=== PATIENT | female | born 1955 | race Caucasian/White ===

== ENCOUNTER 2020-10-15 14:54 | Emergency (ER) | payer BC ==
[2020-10-15 15:36] LABS: BASOPHILS % (AUTO) 0.6 %; EOSINOPHILS # (AUTO) 0.4 10^3/uL (0.0-0.7); EOSINOPHILS % (AUTO) 5.7 %; HGB - HEMOGLOBIN 13.6 g/dL (12.0-16.0); LYMPHOCYTES % (AUTO) 16.4 %; MEAN CORPUSCULAR HEMOGLOBIN 29.5 pg (27.0-31.0); MEAN CORPUSCULAR HGB CONC 32.2 g/dL (32.0-36.0); MEAN CORPUSCULAR VOLUME 91.5 fL (81.0-99.0); MEAN PLATELET VOLUME 9.8 fL (7.9-10.8); MONOCYTES # (AUTO) 0.4 10^3/uL (0.0-1.0); MONOCYTES % (AUTO) 6.5 %; NEUTROPHILS # (AUTO) 4.5 10^3/uL (1.5-6.6); NEUTROPHILS % (AUTO) 70.6 %; PLT - PLATELET COUNT 241 10^3/uL (130-450); RED BLOOD COUNT 4.61 10^6/uL (4.20-5.40); WHITE BLOOD COUNT 6.3 x10^3/uL (4.8-10.8)
--- NOTE | 2020-10-15 15:42 | XRAY Report ---
PROCEDURE: Chest 1 View X-Ray INDICATIONS: Chest Pain TECHNIQUE: One view of the chest was acquired. COMPARISON: None FINDINGS: Surgical changes and devices: Thoracic Osman rods are in place.. Lungs and pleura: No pleural effusions or pneumothorax. Lungs are clear. Mediastinum: Mediastinal contours appear normal. Heart size is normal. Bones and chest wall: No suspicious bony lesions. Moderate thoracic scoliosis. Overlying soft tissu es appear unremarkable. IMPRESSION: No acute cardiopulmonary disease. Reviewed by: Zoe Arias MD on 10/15/2020 3:41 PM PST Approved by: Zoe Arias MD on 10/15/2020 3:41 PM PST Station ID: [id number]
[2020-10-15 15:47] LABS: ALBUMIN 4.8 g/dL (3.2-5.5); ALBUMIN/GLOBULIN RATIO 1.8 (1.0-2.2); BILIRUBIN,TOTAL 0.4 mg/dL (0.2-1.0); CALCIUM 9.4 mg/dL (8.5-10.3); CREATININE 0.6 mg/dL (0.4-1.0); TOTAL PROTEIN 7.5 g/dL (6.7-8.2)
[2020-10-15 16:08] LABS: BILIRUBIN,URINE NEGATIVE (NEGATIVE); CLARITY,URINE CLEAR (CLEAR); GLUCOSE, URINE (UA) NEGATIVE (NEGATIVE); KETONES,URINE (UA) NEGATIVE (NEGATIVE); LEUKOCYTE ESTERASE, URINE NEGATIVE (NEGATIVE); NITRITE,URINE NEGATIVE (NEGATIVE); OCCULT BLOOD,URINE SMALL (NEGATIVE); PROTEIN,URINE NEGATIVE (NEGATIVE); UROBILINOGEN,URINE 0.2 (NORMAL) E.U./dL (NORMAL)
--- NOTE | 2020-10-15 16:10 | ED Physician Documentation ---
History of Present Illness - Stated complaint Stated Complaint: SOA - Chief complaint Chief Complaint: Resp - History obtained from History obtained from: Patient - Additonal information Additional information: 65-year-old female who has an underlying history of multiple sclerosis as well as scoliosis status post rodding of her spine presents to the emergency department with acute onset shortness of air and a feeling of warming in her body but no active fevers. She denies any cough or congestion. No chest pain no leg swelling abdominal pain or dysuria. She does report that she is followed by Dr. Martell the neurologist in [place]. Her MS is described as mild and she is only on gabapentin 100 mg 3 times a day. She does report that she is being managed for persistent spinal pain secondary t o the scoliosis and takes buprenorphine 2 mg sublingually 4 times a day. Patient denies that she has numbness, tingling or weakness in her arms or legs. She does not feel that the symptoms are consistent with previous MS flares. Pt denies any history of hypertension, coronary artery disease, blood clots or cancer. She is not a smoker. Nondrinker. Review of Systems Constitutional: denies: Fever, Chills, Myalgias Eyes: reports: Reviewed and negative Ears: reports: Reviewed and negative Nose: reports: Reviewed and negative Throat: reports: Reviewed and negative Cardiac: reports: Reviewed and negative Respiratory: reports: Dyspnea. 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] Allergy Intermediate Rash Verified 10/15/20 15:01 - Social History Does the pt smoke?: No Smoking Status: Never smoker Does the pt drink ETOH?: Yes Does the pt have substance abuse?: No - Immunizations Immunizations are current?: Yes PD ED PE EXPANDED - General General: Alert, No acute distress, Well developed/nourished - Neck Neck: Supple w/out meningeal sx, No tenderness. No: Adenopathy - Cardiac Cardiac: Regular Rate, Regular Rhythm, Radial strong equal, Pedal strong equal, Cap refill < 2 sec. No: Murmur Present - Respiratory Respiratory: Clear to ausultation stacy. No: Distress, Labored - Abdomen Abdomen: Normal Bowel sounds. No: Tender to palpation - Back Back: Other (Long midline thoracic lumbar spinal scar well-healed. No swelling or ecchymosis.) - Extremities Extremities: Normal. No: Deformity, Tenderness - Neuro Neuro: Alert and Oriented X 3, CNII-XII intact - GCS Eye Opening: Spontaneous Motor: Obeys Commands Verbal: Oriented Total: 15 Results - Vitals Vitals: Vital Signs - 24 hr 10/15/20 10/15/20 10/15/20 14:58 15:43 15:51 Temperature 36.3 C L Heart Rate 73 67 Respiratory 17 14 Rate Blood Pressure 168/69 H 158/71 H 170/73 H O2 Saturation 99 98 10/15/20 10/15/20 10/15/20 16:00 16:30 17:00 Temperature Heart Rate 61 64 70 Respiratory 19 17 17 Rate Blood Pressure 145/73 H 149/63 H 162/83 H O2 Saturation 98 98 98 Oxygen O2 Source Room air - EKG (time done) 1517 Rate: Rate (enter#) (65) Rhythm: NSR [place]: Normal Intervals: Normal NM Ischemia: Q waves (>30mS V2-V5) Compare to prior EKG: Old EKG unavailable Computer interpretation: Agree with computer - Labs Labs: Laboratory Tests 10/15/20 10/15/20 10/15/20 15:20 15:20 15:20 WBC 6.3 RBC 4.61 Hgb 13.6 Hct 42.2 MCV 91.5 MCH 29.5 MCHC 32.2 RDW 13.0 Plt Count 241 MPV 9.8 Neut # (Auto) 4.5 Lymph # (Auto) 1.0 L Beckham # (Auto) 0.4 Eos # (Auto) 0.4 Baso # (Auto) 0.0 Absolute Nucleated RBC 0.00 Nucleated RBC % 0.0 Sodium 137 Potassium 3.5 Chloride 99 L Carbon Dioxide 29 Anion Gap 9.0 BUN 16 Creatinine 0.6 Estimated GFR (MDRD) 101 Glucose 113 H Calcium 9.4 Total Bilirubin 0.4 AST 25 ALT 20 Alkaline Phosphatase 66 Troponin I High Sens 2.4 B-Natriuretic Peptide Total Protein 7.5 Albumin 4.8 Globulin 2.7 Albumin/Globulin Ratio 1.8 Lipase 24 Urine Color Urine Clarity Urine pH Ur Specific [place] Urine Protein Urine Glucose (UA) Urine Ketones Urine Occult Blood Urine Nitrite Urine Bilirubin Urine Urobilinogen Ur Leukocyte Esterase Urine RBC Urine WBC Ur Squamous Epith Cells Urine Bacteria 10/15/20 10/15/20 15:20 15:50 WBC RBC Hgb Hct MCV MCH MCHC RDW Plt Count MPV Neut # (Auto) Lymph # (Auto) Beckham # (Auto) Eos # (Auto) Baso # (Auto) Absolute Nucleated RBC Nucleated RBC % Sodium Potassium Chloride Carbon Dioxide Anion Gap BUN Creatinine Estimated GFR (MDRD) Glucose Calcium Total Bilirubin AST ALT Alkaline Phosphatase Troponin I High Sens B-Natriuretic Peptide 53 Total Protein Albumin Globulin Albumin/Globulin Ratio Lipase Urine Color YELLOW Urine Clarity CLEAR Urine pH 6.0 Ur Specific [place] 1.010 Urine Protein NEGATIVE Urine Glucose (UA) NEGATIVE Urine Ketones NEGATIVE Urine Occult Blood SMALL H Urine Nitrite NEGATIVE Urine Bilirubin NEGATIVE Urine Urobilinogen 0.2 (NORMAL) Ur Leukocyte Esterase NEGATIVE Urine RBC 6-10 H Urine WBC 0-3 Ur Squamous Epith Cells RARE Squamous Urine Bacteria None Seen - Rads (name of study) CXR Radiology: Final report received (No acute cardiopulmonary process) PD MEDICAL DECISION MAKING - ED course Complexity details: reviewed results, re-evaluated patient, considered differential, d/w patient ED course: 65-year-old female presents the emergency department with chief complaint of acute shortness of air. She had no hypoxia. Chest x-ray was unremarkable for focal pneumonia. EKG was nonischemic. High-sensitivity troponin as well as BNP unremarkable. No anemia or significant electrolyte abnormality. By Wells criteria the suspicion for acute PE would be extremely low. However without an alternative diagnosis for acute shortness of breath I had ordered a CT pulmonary angio to rule out a PE. However the patient was quite uncomfortable with the idea of a CT scan with contrast though she does not have a history of contrast allergy. At this time without any intervention here in the emergency department her shortness of air has resolved. She is requesting to be discharged home. Though not necessarily AGAINST MEDICAL ADVICE she was notified that if at any point she felt her symptoms were worsening to please return immediately to the emergency department for repeat evaluation. Patient feels that her shortness of air is related to her worsening back pain and scoliosis. She did take her boot the nephron which she feels may have improved her symptoms Departure - Departure Disposition: 01 Home, Self Care Clinical Impression: Shortness of breath Condition: Stable Record reviewed to determine appropriate education?: Yes Comments: Mariya matias are seen today for shortness of air. Here in the emergency department all your labs including your heart lab was normal. Your chest x-ray did not show any pneumonia. Your vital signs were also relatively stable. Your oxygen levels were normal. We did discuss doing the CT angio of your chest to rule out a blood clot in your lungs. You have declined to do this procedure. You were feeling better despite no interventions here in the emergency department. If at any point you feel that your symptoms are worsening please return immediately to the emergency department
[2020-10-15 16:18] LABS: BACTERIA,URINE None Seen /HPF (None Seen); SQUAMOUS EPITHELIAL CELL,UR RARE Squamous (<= Few)
[2020-10-15] MEDS ORDERED: IOVERSOL 320 100 ML VIAL IVP ONE (17:02)
[2020-10-15 17:15] VITALS: BP 162/83
== END 2020-10-15 17:36 | disposition home or self-care (01) ==
LOC: ED 14:54
DX: R06.02 Shortness of breath (principal); G35 Multiple sclerosis; M41.9 Scoliosis, unspecified; Z20.828 Contact with and (suspected) exposure to other viral communicable diseases
CPT/HCPCS: 36415; 80053; 81001; 83690; 83880; 84484; 85025; 93005; 99284

== ENCOUNTER 2021-05-01 17:52 | Emergency (ER) | payer BC ==
[2021-05-01 18:20] LABS: BASOPHILS % (AUTO) 0.7 %; EOSINOPHILS % (AUTO) 0.2 %; HCT - HEMATOCRIT 41.4 % (37.0-47.0); HGB - HEMOGLOBIN 13.7 g/dL (12.0-16.0); LYMPHOCYTES # (AUTO) 0.9 10^3/uL (1.5-3.5); LYMPHOCYTES % (AUTO) 14.2 %; MEAN CORPUSCULAR HEMOGLOBIN 29.8 pg (27.0-31.0); MEAN CORPUSCULAR HGB CONC 33.1 g/dL (32.0-36.0); MEAN PLATELET VOLUME 9.3 fL (7.9-10.8); MONOCYTES # (AUTO) 0.7 10^3/uL (0.0-1.0); MONOCYTES % (AUTO) 10.9 %; NEUTROPHILS # (AUTO) 4.5 10^3/uL (1.5-6.6); NEUTROPHILS % (AUTO) 73.7 %; PLT - PLATELET COUNT 246 10^3/uL (130-450); RED CELL DISTRIBUTION WIDTH 12.9 % (12.0-15.0); WHITE BLOOD COUNT 6.1 x10^3/uL (4.8-10.8)
[2021-05-01 18:32] LABS: ALBUMIN 4.5 g/dL (3.2-5.5); ALBUMIN/GLOBULIN RATIO 1.6 (1.0-2.2); BILIRUBIN,TOTAL 0.6 mg/dL (0.2-1.0); CALCIUM 9.7 mg/dL (8.5-10.3); CREATININE 0.5 mg/dL (0.4-1.0); POTASSIUM 3.6 mmol/L (3.5-5.0); TOTAL PROTEIN 7.4 g/dL (6.7-8.2)
--- NOTE | 2021-05-01 18:52 | ED Physician Documentation ---
PD HPI ABD PAIN - Stated complaint Stated Complaint: ABD PAIN - Chief complaint Chief Complaint: Abd Pain - History obtained from History obtained from: Patient - Additional information Additional information: 66-year-old woman with chronic pain due to multiple sclerosis and scoliosis presents with a week and a half of constant upper and central abdominal pain that is worse with eating. It is a burning sensation. She was seen at [facility] a week and a half ago for same and had blood work was done which was normal. Urinalysis showed hematuria so she had a noncontrast CT which was negative. She has had intermittent relief with Pepto-Bismol. Her bowel movements are irregular but that is her baseline due to the pain medication. 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, Hysterectomy - Present Medications Home Medications: Ambulatory Orders Medication Instructions Recorded Confirmed Levothyroxine Sodium [Synthroid] 200 mcg PO DAILY 08/17/13 05/01/21 Oxycodone HCl/Acetaminophen 1 each PO DAILY 08/17/13 05/01/21 [Percocet 10-325 mg Tablet] Omeprazole [PriLOSEC] 1 cap PO DAILY 05/01/21 05/01/21 Omeprazole [PriLOSEC] 20 mg PO BID #60 05/01/21 Oxycodone Myristate [Xtampza ER] 1 cap PO BID 05/01/21 05/01/21 Sucralfate [Carafate] 1 gm PO ACHS #60 tablet 05/01/21 - Allergies Allergies/Adverse Reactions: Allergies Allergy/AdvReac Type Severity Reaction Status Date / Time meloxicam [From Mobic] Allergy Intermediate Rash Verified 05/01/21 18:03 - Social History Does the pt smoke?: No Smoking Status: Never smoker Does the pt drink ETOH?: Yes Does the pt have substance abuse?: No - Immunizations Immunizations are current?: Yes PD ED PE NORMAL - Vitals Vital signs reviewed: Yes - General General: Alert and oriented X 3, No acute distress - HEENT HEENT: PERRL, EOMI - Neck Neck: Supple, no meningeal sign, No bony TTP - Cardiac Cardiac: RRR, No murmur - Respiratory Respiratory: No respiratory distress, Clear bilaterally - Abdomen Abdomen: Soft, Other (The hyperactive bowel tones, minimal diffuse tenderness wi thout guarding or rebound, no specific tenderness anywhere including in the right upper quadrant.) - Back Back: No CVA TTP, No spinal TTP - Extremities Extremities: No edema, No calf tenderness / cord - Neuro Neuro: Alert and oriented X 3, Normal speech Results - Vitals Vitals: Vital Signs - 24 hr 05/01/21 05/01/21 05/01/21 17:59 18:41 19:02 Temperature 36.6 C Heart Rate 81 70 75 Respiratory 18 19 19 Rate Blood Pressure 148/75 H 146/84 H 127/78 O2 Saturation 96 97 99 05/01/21 20:47 Temperature 36.8 C Heart Rate 77 Respiratory 16 Rate Blood Pressure 153/74 H O2 Saturation 98 Oxygen O2 Source Room air - Labs Labs: Laboratory Tests 05/01/21 05/01/21 05/01/21 18:10 18:15 18:15 WBC 6.1 RBC 4.60 Hgb 13.7 Hct 41.4 MCV 90.0 MCH 29.8 MCHC 33.1 RDW 12.9 Plt Count 246 MPV 9.3 Neut # (Auto) 4.5 Lymph # (Auto) 0.9 L [place] # (Auto) 0.7 Eos # (Auto) 0.0 Baso # (Auto) 0.0 Absolute Nucleated RBC 0.00 Nucleated RBC % 0.0 Sodium 140 Potassium 3.6 Chloride 100 L Carbon Dioxide 29 Anion Gap 11.0 BUN 15 Creatinine 0.5 Estimated GFR (MDRD) 124 Glucose 108 H Calcium 9.7 Total Bilirubin 0.6 AST 20 ALT 18 Alkaline Phosphatase 62 Total Protein 7.4 Albumin 4.5 Globulin 2.9 Albumin/Globulin Ratio 1.6 Lipase 20 L Urine Color YELLOW Urine Clarity CLEAR Urine pH 6.5 Ur Specific [place] <=1.005 Urine Protein NEGATIVE Urine Glucose (UA) NEGATIVE Urine Ketones NEGATIVE Urine Occult Blood SMALL H Urine Nitrite NEGATIVE Urine Bilirubin NEGATIVE Urine Urobilinogen 0.2 (NORMAL) Ur Leukocyte Esterase NEGATIVE Urine RBC 0-5 Urine WBC 0-3 Ur Squamous Epith Cells RARE Squamous Urine Bacteria Rare Ur Microscopic Review INDICATED Urine Culture Comments NOT INDICATED PD MEDICAL DECISION MAKING - ED course ED course: 66-year-old woman with upper abdominal pain, worse with eating, most consistent with gastritis/ulcer. Examination is quite benign. Labs are reassuring. Had recent negative CT without contrast. Had minimal relief with GI cocktail and a CT with contrast was ordered. CT neg, o/w seems most c/w gastritis/gerd/pud. Departure - Departure Disposition: 01 Home, Self Care Clinical Impression: Gastritis Qualifiers: Gastritis type: unspecified gastritis Chronicity: acute Gastritis bleeding: without bleeding Qualified Code(s): K29.00 - Acute gastritis without bleeding Abdominal pain Qualifiers: Abdominal location: epigastric Qualified Code(s): R10.13 - Epigastric pain Condition: Good Record reviewed to determine appropriate education?: Yes Instructions: ED Gastritis Prescriptions: Sucralfate [Carafate] 1 gm PO ACHS #60 tablet Omeprazole [PriLOSEC] 20 mg PO BID #60 Comments: As discussed, your CAT scan is normal. I suspect this is a manifestation of an ulcer or gastritis. Double your omeprazole to twice a day. Add the Carafate,, but with the discussed warning that you cannot take it within an hour of your other medications. Return for new or worsening symptoms. Discuss referral for upper endoscopy with your physician. Discharge Date/Time: 05/01/21 20:55
[2021-05-01] MEDS ORDERED: MAG HYDROX/AL HYDROX/SIMETH 30 ML UDC PO STA (18:53)
[2021-05-01] MEDS ORDERED: LIDOCAINE VISCOUS 2% 15 ML UDC MM STA (18:53)
[2021-05-01 19:00] LABS: BILIRUBIN,URINE NEGATIVE (NEGATIVE); CLARITY,URINE CLEAR (CLEAR); GLUCOSE, URINE (UA) NEGATIVE (NEGATIVE); KETONES,URINE (UA) NEGATIVE (NEGATIVE); LEUKOCYTE ESTERASE, URINE NEGATIVE (NEGATIVE); NITRITE,URINE NEGATIVE (NEGATIVE); OCCULT BLOOD,URINE SMALL (NEGATIVE); PH,URINE 6.5 PH (5.0-7.5); PROTEIN,URINE NEGATIVE (NEGATIVE); UROBILINOGEN,URINE 0.2 (NORMAL) E.U./dL (NORMAL)
[2021-05-01 19:11] LABS: BACTERIA,URINE Rare /HPF (None Seen); RBC,URINE 0-5 /HPF (0-5); SQUAMOUS EPITHELIAL CELL,UR RARE Squamous (<= Few); WBC,URINE 0-3 /HPF (0-5)
[2021-05-01] MEDS ORDERED: IOVERSOL 320 100 ML VIAL IVP ONE ×2 (19:39→20:06)
--- NOTE | 2021-05-01 20:18 | CT Report ---
PROCEDURE: Abdomen/Pelvis W INDICATIONS: IV only, upper abd pain CONTRAST: IV CONTRAST: Optiray 320 ml: 100 PO CONTRAST: *NO PO CONTRAST TECHNIQUE: After the administration of IV contrast, 5 mm thick sections acquired from the diaphragms to the symp hysis. 5 mm thick coronal and sagittal reformats were acquired. For radiation dose reduction, the f ollowing was used: automated exposure control, adjustment of mA and/or kV according to patient size. COMPARISON: None. FINDINGS: Image quality: Excellent. ABDOMEN: Lung bases: Lung bases are clear. Heart size is normal. Solid organs: Liver and spleen are normal in size and enhancement. Gallbladder is mildly distended and otherwise within normal limits Biliary system is non dilated. Pancreas enhances normally. No a drenal nodules. Kidneys demonstrate normal size and enhancement, without hydronephrosis. Peritoneum and bowel: Bowel loops demonstrate normal wall thickness and caliber. No free fluid or a ir. Nodes and vessels: No retroperitoneal or mesenteric adenopathy by size criteria. Aorta and inferior vena cava are normal in size. Miscellaneous: No ventral hernias. PELVIS: Genitourinary: Bladder wall thickness is normal. Miscellaneous: No inguinal hernias or adenopathy. Bones: No suspicious bony lesions. Severe leftward curvature of the thoracolumbar spine. Thoracolumb ar spinal hardware is present. No vertebral body compression fractures. IMPRESSION: 1. No acute process. 2. Appendix not seen. No evidence of appendicitis. Reviewed by: Gil Allen MD on 05/01/2021 8:17 PM PDT Approved by: Gil Allen MD on 05/01/2021 8:17 PM PDT Station ID: [id number]
[2021-05-01] MEDS ORDERED: PANTOPRAZOLE 40 MG VIAL IVP STA (20:34)
[2021-05-01 20:48] VITALS: BP 153/74
== END 2021-05-01 20:55 | disposition home or self-care (01) ==
LOC: ED 17:52
DX: K29.00 Acute gastritis without bleeding (principal); G35 Multiple sclerosis; G89.29 Other chronic pain; Z79.891 Long term (current) use of opiate analgesic; M41.9 Scoliosis, unspecified
CPT/HCPCS: 36415; 74177; 80053; 81001; 83690; 85025; 96374; 99284; A9270; Q9967; 81003; 87086

== ENCOUNTER 2021-09-26 09:14 | Outpatient (CLI) | payer BC | END 2021-09-26 09:15 | disposition critical access hospital (66) | LOC: EMS 09:14 | DX: M25.511 Pain in right shoulder (principal) | CPT/HCPCS: A0425; A0429 ==

== ENCOUNTER 2021-09-26 09:28 | Emergency (ER) | payer BC ==
[2021-09-26] MEDS ORDERED: PROPOFOL 200 MG/20 ML VIAL IVP STA (10:18)
[2021-09-26] MEDS ORDERED: HYDROmorphone 1 MG/ML CARPUJECT IVP STA (10:21)
[2021-09-26] MEDS ORDERED: SODIUM CHLORIDE 0.9% 1,000 ML IV STA (10:22)
[2021-09-26] MEDS ORDERED: ONDANSETRON 4 MG/2 ML VIAL IVP STA (10:22)
--- NOTE | 2021-09-26 10:23 | ED Physician Documentation ---
PD HPI UPPER EXT INJURY - Stated complaint Stated Complaint: SHOULDER PX - Chief complaint Chief Complaint: Trauma Ext - History obtained from History obtained from: Patient - Additonal information Additional information: Patient comes emergency department chief complaint of pain in right shoulder. She states she was trying to put her robe on this morning and when she reached her arm back to put in the arm hole, she suddenly felt her shoulder "popped out". Patient states this is happened many times before and in fact, happens about once a month. Is been happening for years and patient states that it usually just pops back and on its own. She has never seen an orthopedist for this. States sometimes that she gets some numbness in her hand afterward. Patient states that this time, it did not pop back in on its own. She states it is hurting a lot. No other complaints at this time. Review of Systems Ten Systems: 10 systems reviewed and negative Constitutional: reports: Reviewed and negative Eyes: reports: Reviewed and negative Ears: reports: Reviewed and negative Nose: reports: Reviewed and negative Throat: reports: Reviewed and negative Cardiac: reports: Reviewed and negative Respiratory: reports: Reviewed and negative GI: reports: Reviewed and negative : reports: Reviewed and negative Skin: reports: Reviewed and negative Musculoskeletal: reports: Extremity pain, Joint pain Neurologic: reports: Reviewed and negative Psychiatric: reports: Reviewed and negative Endocrine: reports: Reviewed and negative Immunocompromised: reports: Reviewed and negative PD PAST MEDICAL HISTORY - Past Medical History Past Medical History: Yes Cardiovascular: None Respiratory: None Neuro: None Endocrine/Autoimmune: HyPOthyroidism GI: GERD NURSE TECH: None : None HEENT: None Psych: None Musculoskeletal: Scoliosis Derm: None - Past Surgical History Past Surgical History: Yes Ortho: Knee replacement, Arthroscopic surgery, 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, Hysterectomy - Present Medications Home Medications: Ambulatory Orders Medication Instructions Recorded Confirmed Levothyroxine Sodium [Synthroid] 200 mcg PO DAILY 08/17/13 09/26/21 Oxycodone HCl/Acetaminophen 1 each ORAL Q4HR PRN 08/17/13 05/01/21 [Percocet 10-325 mg Tablet] Omeprazole [PriLOSEC] 20 mg PO BID #60 05/01/21 09/26/21 HYDROcod/ACETAM 5/325 [[place] 5/325] 1 - 2 tablet PO Q6H PRN #14 tablet 09/26/21 Ondansetron Odt [Zofran] 4 mg TL Q6H PRN #10 tablet 09/26/21 Oxycodone Myristate [Xtampza ER] 9 mg ORAL BID 09/26/21 09/26/21 - Allergies Allergies/Adverse Reactions: Allergies Allergy/AdvReac Type Severity Reaction Status Date / Time meloxicam [From Mobic] Allergy Intermediate Rash Verified 09/26/21 09:34 - Social History Does the pt smoke?: No Smoking Status: Never smoker Does the pt drink ETOH?: Yes Does the pt have substance abuse?: No - Immunizations Immunizations are current?: Yes PD ED PE NORMAL - Vitals Vital signs reviewed: Yes - General General: Alert and oriented X 3, Well developed/nourished, Other (Patient is crying, but otherwise no apparent distress.) - HEENT HEENT: Atraumatic, PERRL, EOMI, Moist mucous membranes - Neck Neck: Supple, no meningeal sign, No bony TTP - Cardiac Cardiac: RRR, No murmur, Strong equal pulses - Respiratory Respiratory: No respiratory distress, Clear bilaterally - Abdomen Abdomen: Soft, Non tender, Non distended - Derm Derm: Normal color, Warm and dry, No rash - Extremities Extremities: No deformity, Other (Palpably dislocated right shoulder with caving of glenoid fossa. Limited range of motion secondary to pain and patient's anxiety level. Patient does not allow any external rotation of the shoulder.) - Neuro Neuro: Alert and oriented X 3 - Psych Psych: Normal mood, Normal affect Results - Vitals Vitals: Vital Signs - 24 hr 09/26/21 09/26/21 09/26/21 09:35 10:44 11:20 Temperature 36.7 C Heart Rate 68 70 73 Respiratory 20 16 19 Rate Blood Pressure 186/73 H 175/86 H 184/77 H O2 Saturation 100 100 100 09/26/21 09/26/21 09/26/21 11:33 11:37 11:42 Temperature Heart Rate 69 67 80 Respiratory 14 15 16 Rate Blood Pressure 159/85 H 160/133 H O2 Saturation 100 100 09/26/21 09/26/21 11:43 12:37 Temperature 36.2 C L Heart Rate 68 70 Respiratory 14 14 Rate Blood Pressure 166/73 H 141/69 H O2 Saturation 100 100 Oxygen O2 Source Room air - Rads (name of study) Right shoulder x-ray Radiology: Final report received, EMP read indepedently, See rad report (Anterior dislocation right shoulder) Right shoulder x-ray #2 Radiology: Final report received, EMP read indepedently, See rad report (Reduction of shoulder dislocation) Procedures - Reduction Body part reduced: Right, Shoulder Fracture or dislocation: Dislocation Anesthesia: Dilaudid, Other (Fall) Shoulder reduction technique: Traction - counter tract Reduction aftercare: NV intact, Xray confirms reduction, Alignment improved, Sling, Patient tolerated well - Procedural sedation Sedation prep: Informed consent, Time out completed, Last meal, ASA 1 - healthy, IV O2 monitor, ET CO2 monitor, RT present Sedation Medications: propofol Mallampati classification: I Patient status during sedation: Unresponsive, Vitals remained stable, Maintained airway, Recovered uneventfully Sedation recovery: Recovered uneventfully, Back to baseline Time in sedation (Minutes): 8 PD MEDICAL DECISION MAKING - ED course Complexity details: reviewed results, re-evaluated patient, considered differential, d/w patient ED course: Patient's shoulder was reduced after x-ray confirmed dislocation. Repeat x-ray confirmed successful reduction. I have advised the patient that it is probably time for her to see an orthopedist regarding her increasingly frequent and severe dislocations. I have given her the number for Dr. De Leon's office and she should call first thing tomorrow, which is Monday. Patient has been discharged with prescription for analgesia and is instructed to wear the sling but do very gentle range of motion exercises until she sees Dr. De Leon. We discussed the usual indications for return. Departure - Departure Disposition: 01 Home, Self Care Clinical Impression: Shoulder dislocation Qualifiers: Encounter type: initial encounter Laterality: right Qualified Code(s): S43.004A - Unspecified dislocation of right shoulder joint, initial encounter Condition: Stable Instructions: ED Dislocation Shoulder Redu Follow-Up: Everett De Leon MD [Provider Admit Priv/Credential] - Prescriptions: HYDROcod/ACETAM 5/325 [[place] 5/325] 1 - 2 tablet PO Q6H PRN #14 tablet PRN Reason: Pain Ondansetron Odt [Zofran] 4 mg TL Q6H PRN #10 tablet PRN Reason: Nausea / Vomiting Comments: X-rays today showed your right shoulder to be dislocated. We have put this back in place today, though x-rays do show that you have a widened joint space and are at high risk of dislocating again. Given that you have had multiple dislocations in recent months, this is not surprising, but does indicate that you need to follow-up with an orthopedist to discuss further options for your shoulder. Until you see orthopedics, you should wear the sling. You may take your arm out to do gentle range of motion exercises or bathe, but should be very careful with any motion that has been problematic for you before. You may take the pain medication as needed, as well as the nausea medication. These have been electronically transmitted to [facility] pharmacy in [place]. Please call first thing tomorrow morning to set up a follow-up appointment with orthopedics. Discharge Date/Time: 09/26/21 12:37
--- NOTE | 2021-09-26 10:41 | XRAY Report ---
PROCEDURE: Shoulder 3 View RT INDICATIONS: injury/pain TECHNIQUE: 3 views of the shoulder were acquired. COMPARISON: None. FINDINGS: Bones: There is anterior dislocation of the right glenohumeral joint. No definite displaced fracture identified. There is mild flattening of the superolateral humeral head suggestive of a Hill-Sachs le elisabeth. No suspicious bony lesions. Visualized ribs appear intact. Posterior fixation rods are partia lly visualized within the thoracic spine. Soft tissues: No suspicious soft tissue calcifications. IMPRESSION: 1. Anterior dislocation of the right glenohumeral joint. Reviewed by: Parker Mendes MD on 09/26/2021 9:40 AM [facility] Approved by: Parker Mendes MD on 09/26/2021 9:40 AM [facility] Station ID: [id number]
--- NOTE | 2021-09-26 12:07 | XRAY Report ---
PROCEDURE: Shoulder 2 View RT INDICATIONS: post reduction TECHNIQUE: 2 views of the shoulder were acquired. COMPARISON: 09/26/2021. FINDINGS: Bones: There is interval reduction of the right glenohumeral joint. No displaced or depressed fractur e visualized on the current study. No suspicious bony lesions. Visualized ribs appear intact. Spinal fixation rods partially visualized. Soft tissues: No suspicious soft tissue calcifications. IMPRESSION: 1. Interval reduction of the right glenohumeral joint. Reviewed by: Parker Mendes MD on 09/26/2021 11:05 AM [facility] Approved by: Parker Mendes MD on 09/26/2021 11:05 AM [facility] Station ID: [id number]
[2021-09-26 12:37] VITALS: BP 141/69
== END 2021-09-26 12:37 | disposition home or self-care (01) ==
LOC: EDUNIT# → ED 09:28
DX: M24.411 Recurrent dislocation, right shoulder (principal); X50.9XXA Other and unspecified overexertion or strenuous movements or postures, initial encounter; Y93.89 Activity, other specified
CPT/HCPCS: 23655; 73030; 96374; 96375; 99284; 99285; J1170; 94770